=== PATIENT | female | born 1980 | race Caucasian/White ===

== ENCOUNTER → 2021-11-22 | Outpatient (CLI) | payer OTHER ==
[2021-11-25 18:08] LABS: CHLAMYDIA TRACHOMATIS, NAA Negative (Negative); HPV 16 Negative (Negative); HPV 18 Negative (Negative); HPV OTHER HR TYPES Positive (Negative)
== END | disposition home or self-care (01) ==
LOC: LAB SHORT 15:30 → LAB 15:30
PROVIDERS: Advanced Practice Midwife
DX: Z01.419 Encounter for gynecological examination (general) (routine) without abnormal findings (principal); Z11.3 Encounter for screening for infections with a predominantly sexual mode of transmission
CPT/HCPCS: 87491; 87591; 87624; 87625; G0123

== ENCOUNTER 2022-06-08 19:51 | Emergency (ER) | payer OTHER ==
[~2022-06-08] VITALS: Ht 157.5 cm; Wt 63.5 kg
[2022-06-08 20:17] VITALS: BP 204/134
[2022-06-08] MEDS ORDERED: CEPH500 PO (20:24)
== END 2022-06-08 20:34 | disposition home or self-care (01) ==
LOC: ER 19:51
DX: L03.115 Cellulitis of right lower limb (principal); G40.909 Epilepsy, unspecified, not intractable, without status epilepticus; F17.210 Nicotine dependence, cigarettes, uncomplicated
CPT/HCPCS: 99282; A9270

== ENCOUNTER 2022-06-24 18:10 | Emergency (ER) | payer OTHER ==
[~2022-06-24] VITALS: Ht 165.1 cm; Wt 72.6 kg
[~2022-06-24 18:10] MED LIST: CEPH500 PO
[2022-06-24 18:12] VITALS: BP 173/110
[2022-06-24 18:48] LABS: BASOPHILS ABSOLUTE AUTO 0.06 K/mm3 (0.00-0.23); BASOPHILS PERCENT AUTO 1 % (0-2); EOSINOPHILS ABSOLUTE AUTO 0.03 K/mm3 (0.00-0.68); EOSINOPHILS PERCENT AUTO 0 % (0-6); Hematocrit 35.4 % (33.0-51.0); Hemoglobin 10.5 g/dL (11.5-16.0); IMMATURE GRAN ABSOLUTE AUTO 0.07 K/mm3 (0.00-0.10); IMMATURE GRAN PERCENT AUTO 1 % (0-1); LYMPHOCYTES ABSOLUTE AUTO 1.08 K/mm3 (0.84-5.20); LYMPHOCYTES PERCENT AUTO 9 % (21-46); MONOCYTES ABSOLUTE AUTO 0.46 K/mm3 (0.16-1.47); MONOCYTES PERCENT AUTO 4 % (4-13); Mean Corpuscular HGB 18.8 pg (26.0-34.0); Mean Corpuscular HGB Conc 29.7 g/dL (31.5-36.5); Mean Corpuscular Volume 63 fL (80-100); Mean Platelet Volume 10.3 fL (9.1-12.4); NEUTROPHILS ABSOLUTE AUTO 10.52 K/mm3 (1.96-9.15); NEUTROPHILS PERCENT AUTO 86 % (41-73); NRBC ABSOLUTE 0.02 K/mm3 (0.00-0.02); NRBC Auto 0.2 /100 WBC (0.0-0.2); Platelet Count 299 K/mm3 (150-400); RDW Coefficient Variation 19.4 % (11.7-14.2); RDW Standard Deviation 40.4 fL (35.1-46.3); Red Blood Cell Count 5.58 M/mm3 (3.80-5.20); White Blood Cell Count 12.22 K/mm3 (4.00-11.30)
[2022-06-24 18:57] LABS: Albumin/Globulin Ratio 0.5 (0.8-1.8); Bilirubin, Total 1.3 mg/dL (0.1-1.0); Bun/Creatinine Ratio 30.1 (12.0-20.0); Globulin, Blood 5.8 g/dL (2.2-4.0); Potassium, Blood 3.4 mmol/L (3.5-5.5); Total Protein, Blood 8.8 g/dL (6.4-8.2)
== END 2022-06-24 19:20 | disposition left against medical advice (07) ==
LOC: ER 18:10
PROVIDERS: Student in an Organized Health Care Education/Training Program
DX: R79.9 Abnormal finding of blood chemistry, unspecified (principal); Z53.21 Procedure and treatment not carried out due to patient leaving prior to being seen by health care provider
CPT/HCPCS: 71046; 80053; 83880; 84484; 85025; 93005; 93010

== ENCOUNTER 2022-06-24 21:00 | Inpatient (IN) | payer OTHER ==
[~2022-06-24] VITALS: Ht 157.5 cm; Wt 58.7 kg
[2022-06-25 03:12] VITALS: BP 176/113
--- NOTE | 2022-06-25 03:26 | NUR ---
ADMIT NOTE; PT ARRIVES FROM THE ED VIA WHEEL CHAIR @0302. THE PT IS ABLE TO INDEPENDENTLY TRANSFER FROM THE WHEELCHAIR TO THE BED. THE PT IS AXO X4. THE PT DENIES ANY CHEST PAIN ON ADMIT BUT DOES REPORT SOME MILD SOB. O2 SATS ARE >95% ON RA. THE PT HAS 2+ EDEMA TO TE BLLE. THE PT IS NOW RESTING IN BED WITH THE BED IN THE LOWEST POSITION AND THE CALL LIGHT AT BEDSIDE. THE PT HAS NO FURTHER COMPLAINTS AT THIS TIME.
--- NOTE | 2022-06-25 05:22 | NUR ---
SHIFT SUMMARY; NO ACUTE CHANGES SINCE ADMIT. THE PT HAS EXPERESSED SOME DISCOMFORT IN RELATION TO HER RESTLESS LEGS. THE PTS B/P HAVE BEEN ELEVATED THIS EVENING WELL, I CALLED DR. ASH REGARDING THE PTS RESTLESS LEGS AND HER ELEVATED B/P, DR. ASH PUT IN ORDERS FOR COZAAR AND ROPINIROLE. I MEDICATED THE PT WITH THESE MEDICATIONS. THE PT DENIES ANY SOB, CHEST PAIN/PRESSURE OR N/V PRESENTLY. THE PT IS CURRENTLY LAYING IN BED RESTLESSLY WITH HER BED IN THE LOWEST POSITION AND THE CALL LIGHT AT BEDSIDE. THE PT IS AXO X4 AND INDEPENDENT IN THE ROOM. THERE IS A HAT IN THE PTS TOILET, THE PT IS STRICT I&O'S.
[2022-06-25 06:09] VITALS: BP 151/103
[2022-06-25 07:00] LABS: Albumin, Blood 2.6 g/dL (3.4-5.0); Albumin/Globulin Ratio 0.5 (0.8-1.8); Bilirubin, Total 1.1 mg/dL (0.1-1.0); Calcium, Blood 8.4 mg/dL (8.5-10.1); Creatinine, Blood 0.97 mg/dL (0.40-1.00); Globulin, Blood 5.3 g/dL (2.2-4.0); Total Protein, Blood 7.9 g/dL (6.4-8.2)
[2022-06-25 07:07] LABS: CHOL/HDL RATIO 5.8; Cholesterol 133 mg/dL (50-200); HDL Cholesterol 23 mg/dL (>39); LDL/HDL RATIO 4.2; Low Density Lipoprotein Chol 98 mg/dL (0-110); Triglycerides 62 mg/dL (30-160); Very Low Density Lipoprot Chol 12 mg/dL (6-32)
[2022-06-25 07:46] VITALS: BP 153/86
[2022-06-25 09:16] VITALS: BP 135/81
[2022-06-25 10:53] LABS: U Amphetamine Screen DETECTED; U Barbituate Screen Not Detected; U Benzodiazapine Screen Not Detected; U Buprenorphine Screen Not Detected; U Cannabinoids Screen Not Detected; U Cocaine Screen Not Detected; U Methadone Screen Not Detected; U Methamphetamine Screen DETECTED; U Opiates Screen Not Detected; U Oxycodone Screen Not Detected; U Phencyclidine Screen Not Detected; U Propoxyphene Screen Not Detected
[2022-06-25 10:59] LABS: BASOPHILS ABSOLUTE AUTO 0.04 K/mm3 (0.00-0.23); BASOPHILS PERCENT AUTO 0 % (0-2); EOSINOPHILS ABSOLUTE AUTO 0.13 K/mm3 (0.00-0.68); EOSINOPHILS PERCENT AUTO 1 % (0-6); Hematocrit 31.7 % (33.0-51.0); Hemoglobin 9.3 g/dL (11.5-16.0); IMMATURE GRAN ABSOLUTE AUTO 0.04 K/mm3 (0.00-0.10); IMMATURE GRAN PERCENT AUTO 0 % (0-1); LYMPHOCYTES ABSOLUTE AUTO 1.14 K/mm3 (0.84-5.20); LYMPHOCYTES PERCENT AUTO 12 % (21-46); MONOCYTES ABSOLUTE AUTO 0.52 K/mm3 (0.16-1.47); MONOCYTES PERCENT AUTO 6 % (4-13); Mean Corpuscular HGB 18.7 pg (26.0-34.0); Mean Corpuscular HGB Conc 29.3 g/dL (31.5-36.5); Mean Corpuscular Volume 64 fL (80-100); NEUTROPHILS ABSOLUTE AUTO 7.54 K/mm3 (1.96-9.15); NEUTROPHILS PERCENT AUTO 80 % (41-73); Platelet Count 271 K/mm3 (150-400); RDW Coefficient Variation 19.1 % (11.7-14.2); RDW Standard Deviation 41.1 fL (35.1-46.3); Red Blood Cell Count 4.97 M/mm3 (3.80-5.20); White Blood Cell Count 9.41 K/mm3 (4.00-11.30)
[2022-06-25 11:01] LABS: Mean Platelet Volume 10.1 fL (9.1-12.4)
[2022-06-25 16:55] VITALS: BP 115/76
--- NOTE | 2022-06-25 17:26 | NUR ---
PATIENT IS ALERT AND ORIENTED AND COOPERATIVE WITH CARE. ECHO WAS COMPLETED TODAY. PATIENT'S CHILDREN VISITED HER THIS AFTERNOON. PATIENT HAS LAID IN HER BED QUIETLY THROUGHOUT THIS SHIFT. SHE IS INDEPENDENT IN HER ROOM. PATIENT C/O RESTLESS LEGS AND ANXIETY, MEDICATED PER EMAR. HER BLOOD PRESSURE IS IMPROVING WITH HER LAST BP BEING 115/76. NO C/O SOB OR CP. WILL CONTINUE TO MONITOR
[2022-06-25 20:15] VITALS: BP 129/73
--- NOTE | 2022-06-25 23:20 | NUR ---
FAMILY MEMBER BROUGHT SHOWED UP IN ROOM WITH WHAT THEY SAID WAS JOSÉ MIGUEL IN THE BOX. NOTIFIED NURSE.
[2022-06-26 04:05] VITALS: BP 106/65
--- NOTE | 2022-06-26 04:39 | NUR ---
SHIFT SUMMARY; NO ACUTE CHANGES OVERNIGHT. THE PT HAS BEEN SLEEPING IN BED FOR THE MAJORITY OF THE NIGHT. THE PT'S LEGS WERE BOTHERING HER AT THE BEGINNIG OF SHIFT BUT ONCE THE PT RECIEVED HER 2100 MEDS FOR RESTLESS LEGS/NERVE PAIN THE PT HAS SINCE BEEN ABLE TO REST COMFORTABLY IN BED. THE PT IS AXO X4 AND INDEPENDENT IN THE ROOM. THE PT DENIES ANY CHEST PAIN/PRESSURE, PAIN, SOB OR N/V. CURRENTLY THE PT IS SLEEPING IN BED WITH THE BED IN THE LOWEST POSITION AND THE CALL LIGHT AT BEDSIDE.
[2022-06-26 07:22] VITALS: BP 109/69
[2022-06-26 10:03] LABS: BASOPHILS ABSOLUTE AUTO 0.03 K/mm3 (0.00-0.23); BASOPHILS PERCENT AUTO 0 % (0-2); EOSINOPHILS ABSOLUTE AUTO 0.17 K/mm3 (0.00-0.68); EOSINOPHILS PERCENT AUTO 2 % (0-6); Hematocrit 32.9 % (33.0-51.0); Hemoglobin 9.5 g/dL (11.5-16.0); IMMATURE GRAN ABSOLUTE AUTO 0.04 K/mm3 (0.00-0.10); IMMATURE GRAN PERCENT AUTO 1 % (0-1); LYMPHOCYTES PERCENT AUTO 18 % (21-46); MONOCYTES ABSOLUTE AUTO 0.53 K/mm3 (0.16-1.47); MONOCYTES PERCENT AUTO 6 % (4-13); Mean Corpuscular HGB 18.8 pg (26.0-34.0); Mean Corpuscular HGB Conc 28.9 g/dL (31.5-36.5); Mean Corpuscular Volume 65 fL (80-100); NEUTROPHILS ABSOLUTE AUTO 6.12 K/mm3 (1.96-9.15); NEUTROPHILS PERCENT AUTO 73 % (41-73); Platelet Count 282 K/mm3 (150-400); RDW Coefficient Variation 19.5 % (11.7-14.2); RDW Standard Deviation 42.9 fL (35.1-46.3); Red Blood Cell Count 5.04 M/mm3 (3.80-5.20); White Blood Cell Count 8.39 K/mm3 (4.00-11.30)
[2022-06-26 10:04] LABS: Mean Platelet Volume 10.7 fL (9.1-12.4)
[2022-06-26 10:11] LABS: Magnesium, Blood 1.9 mg/dL (1.6-2.4)
[2022-06-26 10:12] LABS: Albumin, Blood 2.4 g/dL (3.4-5.0); Albumin/Globulin Ratio 0.5 (0.8-1.8); Bilirubin, Total 0.6 mg/dL (0.1-1.0); Calcium, Blood 8.2 mg/dL (8.5-10.1); Creatinine, Blood 1.28 mg/dL (0.40-1.00); Globulin, Blood 4.5 g/dL (2.2-4.0); Phosphorus, Blood 3.2 mg/dL (2.5-4.9); Potassium, Blood 3.1 mmol/L (3.5-5.5); Total Protein, Blood 6.9 g/dL (6.4-8.2)
[2022-06-26 11:49] VITALS: BP 117/70
[2022-06-26] MEDS ORDERED: ACET325 PO (12:02)
[2022-06-26] MEDS ORDERED: CARV3.125 PO (12:03)
[2022-06-26] MEDS ORDERED: GABA300 PO (12:03)
[2022-06-26] MEDS ORDERED: ASPI81CH PO (12:03)
[2022-06-26] MEDS ORDERED: LOSA25 PO (12:03)
[2022-06-26] MEDS ORDERED: SPIR25 PO (12:04)
[2022-06-26] MEDS ORDERED: ROPI.25 PO (12:04)
[2022-06-26] MEDS ORDERED: POTA10T PO (12:04)
--- NOTE | 2022-06-26 13:36 | NUR ---
DISCHARGE PT EDUCATED ON THE IMPORTANCE OF QUITTING HER USE OF METH AND HOW HER CHF WILL CONTINUE TO GET WORSE IF SHE DOES NOT MAKE THIS CHANGE. PT VERBALIZES A WANT TO CHANGE THIS HABIT FOR HER CHILDREN. PT ALSO EDUCATED ON HER NEW MEDICATIONS AND THE IMPORTANCE OF MEDICATION COMPLIANCE WITH CHF. PT STATES SHE ALSO UNDERSTANDS THIS. [facility]FM TO CALL TO TOMORROW FOR FOLLOW UP APPOINTMENT. NO OTHER ACUTE CHANGES IN ASSESSMENT PRIOR TO DC. PT WHEELED OUT BY AIDE AND PICKED UP BY FRIEND.
== END 2022-06-26 12:59 | disposition home or self-care (01) | DRG 917 ==
LOC: ER 21:00 → MEDS 21:02 → ENPENDDIS 06-26 11:50 → MEDS 06-26 12:59
PROVIDERS: Family Medicine; Hospitalist; ADMIT Student in an Organized Health Care Education/Training Program
DX: T43.651A Poisoning by methamphetamines accidental (unintentional), initial encounter (principal); I21.A1 Myocardial infarction type 2; I50.41 Acute combined systolic (congestive) and diastolic (congestive) heart failure; E87.1 Hypo-osmolality and hyponatremia; I16.1 Hypertensive emergency; N17.9 Acute kidney failure, unspecified; I11.0 Hypertensive heart disease with heart failure; D50.9 Iron deficiency anemia, unspecified; R94.31 Abnormal electrocardiogram [ECG] [EKG]; G40.909 Epilepsy, unspecified, not intractable, without status epilepticus; F11.10 Opioid abuse, uncomplicated; E87.6 Hypokalemia; F41.9 Anxiety disorder, unspecified; G25.81 Restless legs syndrome; F15.10 Other stimulant abuse, uncomplicated; Z79.2 Long term (current) use of antibiotics; F17.210 Nicotine dependence, cigarettes, uncomplicated; X58.XXXA Exposure to other specified factors, initial encounter
CPT/HCPCS: 36415; 80053; 80061; 83036; 83735; 83880; 84100; 84443; 84484; 85025; 93005; 93010; 93306; 96372; 96374; 96376; 99284-25; A9270; G0378; J1650; J1940

== ENCOUNTER 2022-06-29 02:14 | Emergency (ER) | payer OTHER ==
[~2022-06-29 02:14] MED LIST changes: +ACET325 PO; +ASPI81CH PO; +CARV3.125 PO; +GABA300 PO; +LOSA25 PO; +POTA10T PO; +ROPI.25 PO; +SPIR25 PO
[2022-06-29 06:33] LABS: Appearance, Urine Clear (Clear); Bilirubin, Urine Neg (Neg); Blood, Urine Neg (Neg); Color, Urine Yellow (P-Yellow); Glucose Qualitative, Urine Neg (Neg); Ketones, Urine Neg (Neg); Leukocyte Esterase, Urine Neg (Neg); Nitrite, Urine Neg (Neg); Protein, Urine Neg (Neg); Source, Urine Clean Catch; Urobilinogen, Urine NORM (Normal); pH, Urine 6.5 (5.0-8.0)
[2022-06-29 07:15] LABS: BASOPHILS ABSOLUTE AUTO 0.07 K/mm3 (0.00-0.23); BASOPHILS PERCENT AUTO 1 % (0-2); EOSINOPHILS ABSOLUTE AUTO 0.16 K/mm3 (0.00-0.68); EOSINOPHILS PERCENT AUTO 1 % (0-6); Hematocrit 35.1 % (33.0-51.0); Hemoglobin 9.9 g/dL (11.5-16.0); IMMATURE GRAN ABSOLUTE AUTO 0.09 K/mm3 (0.00-0.10); IMMATURE GRAN PERCENT AUTO 1 % (0-1); LYMPHOCYTES ABSOLUTE AUTO 1.74 K/mm3 (0.84-5.20); LYMPHOCYTES PERCENT AUTO 11 % (21-46); MONOCYTES ABSOLUTE AUTO 0.97 K/mm3 (0.16-1.47); MONOCYTES PERCENT AUTO 6 % (4-13); Mean Corpuscular HGB 18.6 pg (26.0-34.0); Mean Corpuscular HGB Conc 28.2 g/dL (31.5-36.5); Mean Corpuscular Volume 66 fL (80-100); Mean Platelet Volume 10.3 fL (9.1-12.4); NEUTROPHILS ABSOLUTE AUTO 12.46 K/mm3 (1.96-9.15); NEUTROPHILS PERCENT AUTO 80 % (41-73); Platelet Count 351 K/mm3 (150-400); RDW Coefficient Variation 19.6 % (11.7-14.2); RDW Standard Deviation 44.3 fL (35.1-46.3); Red Blood Cell Count 5.31 M/mm3 (3.80-5.20); White Blood Cell Count 15.49 K/mm3 (4.00-11.30)
[2022-06-29 07:35] LABS: Albumin, Blood 2.9 g/dL (3.4-5.0); Albumin/Globulin Ratio 0.5 (0.8-1.8); Bilirubin, Total 0.6 mg/dL (0.1-1.0); Bun/Creatinine Ratio 17.6 (12.0-20.0); Calcium, Blood 8.3 mg/dL (8.5-10.1); Creatinine, Blood 0.91 mg/dL (0.40-1.00); Globulin, Blood 5.7 g/dL (2.2-4.0); Potassium, Blood 5.5 mmol/L (3.5-5.5); Total Protein, Blood 8.6 g/dL (6.4-8.2)
== END 2022-06-29 07:28 | disposition home or self-care (01) ==
LOC: ER 02:14
PROVIDERS: Student in an Organized Health Care Education/Training Program
DX: R07.9 Chest pain, unspecified (principal); M54.50 Low back pain, unspecified; F19.11 Other psychoactive substance abuse, in remission; D72.829 Elevated white blood cell count, unspecified; I11.0 Hypertensive heart disease with heart failure; I50.9 Heart failure, unspecified; F17.210 Nicotine dependence, cigarettes, uncomplicated
CPT/HCPCS: 71045; 80053; 81003; 81025; 83690; 83880; 84484; 85025; 93005; 93010

== ENCOUNTER 2022-10-06 12:46 | Inpatient (IN) | payer OTHER ==
[~2022-10-06] VITALS: Ht 162.6 cm; Wt 59.1 kg
[2022-10-06] VITALS (10 sets, daily range): BP systolic 74–179; BP diastolic 46–115
[2022-10-06 13:42] LABS: BASOPHILS ABSOLUTE AUTO 0.06 K/mm3 (0.00-0.23); BASOPHILS PERCENT AUTO 1 % (0-2); EOSINOPHILS ABSOLUTE AUTO 0.15 K/mm3 (0.00-0.68); EOSINOPHILS PERCENT AUTO 2 % (0-6); Hematocrit 33.3 % (33.0-51.0); Hemoglobin 9.4 g/dL (11.5-16.0); IMMATURE GRAN ABSOLUTE AUTO 0.04 K/mm3 (0.00-0.10); IMMATURE GRAN PERCENT AUTO 1 % (0-1); LYMPHOCYTES ABSOLUTE AUTO 2.08 K/mm3 (0.84-5.20); LYMPHOCYTES PERCENT AUTO 24 % (21-46); MONOCYTES PERCENT AUTO 5 % (4-13); Mean Corpuscular HGB 18.6 pg (26.0-34.0); Mean Corpuscular HGB Conc 28.2 g/dL (31.5-36.5); Mean Corpuscular Volume 66 fL (80-100); NEUTROPHILS ABSOLUTE AUTO 6.08 K/mm3 (1.96-9.15); NEUTROPHILS PERCENT AUTO 69 % (41-73); Platelet Count 235 K/mm3 (150-400); RDW Coefficient Variation 19.9 % (11.7-14.2); RDW Standard Deviation 44.8 fL (35.1-46.3); Red Blood Cell Count 5.05 M/mm3 (3.80-5.20); White Blood Cell Count 8.81 K/mm3 (4.00-11.30)
[2022-10-06 13:51] LABS: Base Excess Venous -5.4 mmol/L; Bicarbonate Venous 20.2 mmol/L (24.0-30.0); PCO2 Venous 39.7 mmHg (38-42); pH Blood Venous 7.32 (7.34-7.37)
[2022-10-06 14:01] LABS: Alanine Aminotransfer (ALT/SGP 18 U/L (12-78); Albumin, Blood 3.4 g/dL (3.4-5.0); Albumin/Globulin Ratio 0.7 (0.8-1.8); Alk Phos 104 U/L (50-136); Anion Gap 13 mmol/L (6-16); Aspartate Aminotrans (AST/SGOT 26 U/L (12-37); Bilirubin, Total 1.5 mg/dL (0.1-1.0); Blood Urea Nitrogen 17 mg/dL (8-24); Bun/Creatinine Ratio 15.9 (12.0-20.0); CO2, Blood 25 mmol/L (21-32); Calcium, Blood 8.9 mg/dL (8.5-10.1); Chloride, Blood 97 mmol/L (98-108); Creatinine, Blood 1.07 mg/dL (0.40-1.00); Ethanol (Alcohol), Blood, Med <3 mg/dL; Globulin, Blood 5.1 g/dL (2.2-4.0); Glomerular Filtration Rate 67 (60-); Glucose, Blood 224 mg/dL (70-99); Sodium, Blood 135 mmol/L (136-145); Total Protein, Blood 8.5 g/dL (6.4-8.2)
[2022-10-06 15:08] LABS: Source, Urine Foley catheter
[2022-10-06 15:11] LABS: Appearance, Urine Clear (Clear); Bilirubin, Urine Neg (Neg); Blood, Urine Neg (Neg); Color, Urine Yellow (P-Yellow); Glucose Qualitative, Urine Neg (Neg); Ketones, Urine Neg (Neg); Leukocyte Esterase, Urine Neg (Neg); Nitrite, Urine Neg (Neg); Protein, Urine 4+ (Neg); Urobilinogen, Urine 2+ (Normal)
[2022-10-06 15:17] LABS: Bacteria Rare /hpf; Red Blood Cells, Urine 0-2 /hpf (0-2); Squamous Epithelial Cells Rare /hpf (Few); White Blood Cells, Urine 0-2 /hpf (0-5)
[2022-10-06 15:22] LABS: U Amphetamine Screen DETECTED; U Barbituate Screen Not Detected; U Benzodiazapine Screen Not Detected; U Buprenorphine Screen DETECTED; U Cannabinoids Screen DETECTED; U Cocaine Screen Not Detected; U Methadone Screen Not Detected; U Methamphetamine Screen DETECTED; U Opiates Screen Not Detected; U Oxycodone Screen Not Detected; U Phencyclidine Screen Not Detected; U Propoxyphene Screen Not Detected
--- NOTE | 2022-10-06 15:49 | NUR ---
Pt's mom Naomi alejandrinasudeep's number [phone] Servando Deni S/O [phone] Reached pt's mother Naomi, updated her on pt's current status. She states the patient's wishes were NOT to be cremated, but that she is an organ donor. She is currently in [place], [place] with no plans to travel here to [place] at this time. Pt's s/o Servando is currently in [place]. He deferred to pt's mother for any decisions as they are not legally .
[2022-10-06] MEDS ORDERED: FUROSEMIDE20 MG PO (16:42)
--- NOTE | 2022-10-06 17:31 | NUR ---
ADMIT PT ARRIVED TO ICU 10 AT 1625. PT INTUBATED, NO SEDATION, LYING QUIETLY WITH EYES CLOSED. PUPILS FIXED AND DILATED. NO GAG WITH SUCTIONING. OG HOOKED TO LIS WITH GREEN OUTPUT. VICENTE DRAINING YELLOW URINE. DR. ALVAREZ ORDERED LEVOPHED FOR HYPOTENSION, BUT IT WAS QUICKLY TITRATED OFF PT BECAME HYPERTENSIVE WITH EVEN LOW DOSE. DR. ALVAREZ AT THE BEDSIDE ATTEMPTING ARTERIAL LINE PLACEMENT. DONOR TEAM UPDATED BY SANDRA HUGO.
--- NOTE | 2022-10-06 19:00 | NUR ---
ASSUMED CARE ASSUMED CARE OF PATIENT. REMAINS INTUBATED- AC/VC 16/400/5/60%. RR 16. NO SPONTANEOUS RESPIRATIONS OR MOVEMENT NOTED. NO RESPONSE TO NOXIOUS STIMULI. OG TO LIS WITH SMALL AMOUNT BROWN DRAINAGE. TEMP VICENTE PATENT AND DRAINING TO GRAVITY. TEMP 93.2F. RIGHT FEMORAL ARTERIAL LINE PATENT. MONITOR SHOWS SB, RATE 58. SEE ADMIT ASSESSMENT FOR FULL ASSESSMENT.
--- NOTE | 2022-10-06 19:30 | NUR ---
HYPOTHERMIA TEMP 92.9F- KESHAWN HUGGER ON AT THIS TIME.
[2022-10-06 20:26] LABS: PCO2 Arterial 26.8 mmHg (35-45); PO2 Arterial 103 mmHg (80-100); pH Blood Arterial 7.61 (7.35-7.45)
[2022-10-07 03:33] LABS: BASOPHILS ABSOLUTE AUTO 0.02 K/mm3 (0.00-0.23); BASOPHILS PERCENT AUTO 0 % (0-2); EOSINOPHILS PERCENT AUTO 1 % (0-6); Hematocrit 30.3 % (33.0-51.0); IMMATURE GRAN ABSOLUTE AUTO 0.02 K/mm3 (0.00-0.10); IMMATURE GRAN PERCENT AUTO 0 % (0-1); LYMPHOCYTES ABSOLUTE AUTO 1.18 K/mm3 (0.84-5.20); LYMPHOCYTES PERCENT AUTO 16 % (21-46); MONOCYTES ABSOLUTE AUTO 0.35 K/mm3 (0.16-1.47); MONOCYTES PERCENT AUTO 5 % (4-13); Mean Corpuscular HGB 18.8 pg (26.0-34.0); Mean Corpuscular HGB Conc 29.7 g/dL (31.5-36.5); Mean Corpuscular Volume 63 fL (80-100); NEUTROPHILS PERCENT AUTO 77 % (41-73); Platelet Count 193 K/mm3 (150-400); RDW Coefficient Variation 19.4 % (11.7-14.2); RDW Standard Deviation 42.4 fL (35.1-46.3); Red Blood Cell Count 4.79 M/mm3 (3.80-5.20); White Blood Cell Count 7.37 K/mm3 (4.00-11.30)
[2022-10-07 03:42] LABS: Mean Platelet Volume 10.2 fL (9.1-12.4)
[2022-10-07 03:50] LABS: International Normalized Ratio 1.19; Prothrombin Time Results 12.4 Sec (9.7-11.5)
[2022-10-07 03:55] LABS: Magnesium, Blood 1.8 mg/dL (1.6-2.4)
[2022-10-07 04:29] LABS: Albumin, Blood 2.1 g/dL (3.4-5.0); Bilirubin, Total 1.5 mg/dL (0.1-1.0); Bun/Creatinine Ratio 15.8 (12.0-20.0); Calcium, Blood 8.2 mg/dL (8.5-10.1); Creatinine, Blood 1.39 mg/dL (0.40-1.00); Phosphorus, Blood 4.3 mg/dL (2.5-4.9); Potassium, Blood 2.9 mmol/L (3.5-5.5)
[2022-10-07 04:30] LABS: Albumin/Globulin Ratio 0.6 (0.8-1.8); Globulin, Blood 3.3 g/dL (2.2-4.0)
[2022-10-07 04:32] LABS: PCO2 Arterial 38.3 mmHg (35-45); PO2 Arterial 66.4 mmHg (80-100); pH Blood Arterial 7.51 (7.35-7.45)
[2022-10-07 04:33] LABS: Total Protein, Blood 5.4 g/dL (6.4-8.2)
--- NOTE | 2022-10-07 06:07 | NUR ---
SHIFT SUMMARY NO ACUTE CHANGES. REMAINS INTUBATED- VENT SETTINGS AC/VC 10, TV 400, PEEP 5, FIO2 50%. NO SPONTANEOUS RESPIRATIONS THIS AM. THERE WERE A FEW EPISODES WHERE THE VENTILATOR SHOWED AN ASSISTED BREATH, RATE 11. NO COUGH/GAG/SWALLOW NOTED. PUPILS REMAIN FIXED AND DILATED, 8MM. NO CORNEAL REFLEX NOTED. NEGATIVE DOLLS EYES. NO RESPONSE IN UPPER EXTREMITIES TO DEEP NAIL BED PRESSURE. WITHDRAWS FEET SLIGHTLY TO NAIL BED PRESSURE AND NOXIOUS STIMULI. OCCASIONAL TWITCHING NOTED- NO OTHER SPONTANEOUS MOVEMENT. MONITOR SHOWED SB-SR, RATE 50s-60s T/O NOC. HR NOW MID-60s. LEVOPHED INFUSED AT 0.5-2MCG/MIN FOR SEVERAL HOURS DURING SHIFT TO MAINTAIN MAP >65. LEVOPHED IS NOW OFF. TEMP PER VICENTE CATHETER NOW 95.9F- EKSHAWN HUGGER IS IN PLACE. OG TO LIS T/O NOC WITH MINIMAL BROWN DRAINAGE. OG IS NOW CLAMPED AFTER MEDS GIVEN. VICENTE PATENT AND DRAINING TO GRAVITY- YELLOW URINE. RIGHT FEMORAL ARTERIAL LINE PATENT. SITE IS WNL AND MARIANELA IS D/I. WILL REPORT TO ONCOMING RN WHEN AVAILABLE.
--- NOTE | 2022-10-07 07:30 | NUR ---
Assumed care at 0700. Bedside report received from williams FLORES. Pt in bed, ventilated via ETT. Vent settings: AC/VC 10/400/5/50%. OG tube in place, clamped. R/groin art line in place, site WNL. Pt has R/EJ, BOOM PG and R/foot PIV in place. Mcguire catheter in place, draining to gravity. Enedelia ray on pt currently, pt temp 96.1. No acute needs ATT, will continue to monitor.
[2022-10-07 12:00] VITALS: BP 100/69
[2022-10-07 13:00] VITALS: BP 81/52
[2022-10-07 15:46] LABS: BASOPHILS ABSOLUTE AUTO 0.03 K/mm3 (0.00-0.23); BASOPHILS PERCENT AUTO 0 % (0-2); EOSINOPHILS PERCENT AUTO 1 % (0-6); Hematocrit 29.2 % (33.0-51.0); Hemoglobin 8.5 g/dL (11.5-16.0); IMMATURE GRAN ABSOLUTE AUTO 0.05 K/mm3 (0.00-0.10); IMMATURE GRAN PERCENT AUTO 0 % (0-1); LYMPHOCYTES ABSOLUTE AUTO 0.81 K/mm3 (0.84-5.20); LYMPHOCYTES PERCENT AUTO 7 % (21-46); MONOCYTES ABSOLUTE AUTO 0.43 K/mm3 (0.16-1.47); MONOCYTES PERCENT AUTO 4 % (4-13); Mean Corpuscular HGB 18.9 pg (26.0-34.0); Mean Corpuscular HGB Conc 29.1 g/dL (31.5-36.5); Mean Corpuscular Volume 65 fL (80-100); NEUTROPHILS ABSOLUTE AUTO 9.82 K/mm3 (1.96-9.15); NEUTROPHILS PERCENT AUTO 87 % (41-73); Platelet Count 153 K/mm3 (150-400); RDW Coefficient Variation 19.7 % (11.7-14.2); RDW Standard Deviation 44.8 fL (35.1-46.3); White Blood Cell Count 11.24 K/mm3 (4.00-11.30)
[2022-10-07 16:09] LABS: International Normalized Ratio 1.27; Prothrombin Time Results 13.2 Sec (9.7-11.5)
[2022-10-07 16:21] LABS: Albumin, Blood 1.8 g/dL (3.4-5.0); Albumin/Globulin Ratio 0.6 (0.8-1.8); Bilirubin, Total 1.6 mg/dL (0.1-1.0); Bun/Creatinine Ratio 15.7 (12.0-20.0); Calcium, Blood 7.9 mg/dL (8.5-10.1); Creatinine, Blood 1.4 mg/dL (0.40-1.00); Globulin, Blood 2.8 g/dL (2.2-4.0); Phosphorus, Blood 2.9 mg/dL (2.5-4.9); Potassium, Blood 3.3 mmol/L (3.5-5.5); Total Protein, Blood 4.6 g/dL (6.4-8.2)
[2022-10-07 16:23] LABS: PO2 Arterial 76.8 mmHg (80-100); pH Blood Arterial 7.48 (7.35-7.45)
[2022-10-07 17:08] LABS: Source, Urine Foley catheter
[2022-10-07 17:13] LABS: Bilirubin, Urine Neg (Neg); Blood, Urine Neg (Neg); Color, Urine Yellow (P-Yellow); Glucose Qualitative, Urine Neg (Neg); Ketones, Urine Neg (Neg); Leukocyte Esterase, Urine 1+ (Neg); Nitrite, Urine Neg (Neg); Protein, Urine Neg (Neg); Urobilinogen, Urine 2+ (Normal)
[2022-10-07 17:27] LABS: Appearance, Urine Hazy (Clear)
[2022-10-07 17:28] LABS: Bacteria Mod /hpf; Red Blood Cells, Urine 0-2 /hpf (0-2); Squamous Epithelial Cells Rare /hpf (Few); Transitional Epithelial Cells Rare /hpf (0-Rare)
[2022-10-07 17:34] LABS: SARS-Cov-2 (COVID-19) PCR, MMC NEGATIVE (NEGATIVE)
--- NOTE | 2022-10-07 19:18 | NUR ---
Shift summary. Pt remains ventiated and unresponsive. No changes to ventilator settings this shift. Levophed titrated back on at 1755 for MAP below 65, infusing at 2 mcg/min. LR infusing at 150 ml/hr. No acute events this shift. See chart for further details. Report given to nightshift RN.
[2022-10-08 03:21] LABS: PCO2 Arterial 45.5 mmHg (35-45); PO2 Arterial 93.2 mmHg (80-100); pH Blood Arterial 7.37 (7.35-7.45)
[2022-10-08 04:53] LABS: BASOPHILS ABSOLUTE AUTO 0.03 K/mm3 (0.00-0.23); BASOPHILS PERCENT AUTO 0 % (0-2); EOSINOPHILS ABSOLUTE AUTO 0.18 K/mm3 (0.00-0.68); EOSINOPHILS PERCENT AUTO 1 % (0-6); Hematocrit 30.2 % (33.0-51.0); Hemoglobin 8.5 g/dL (11.5-16.0); IMMATURE GRAN ABSOLUTE AUTO 0.12 K/mm3 (0.00-0.10); IMMATURE GRAN PERCENT AUTO 1 % (0-1); LYMPHOCYTES ABSOLUTE AUTO 0.98 K/mm3 (0.84-5.20); LYMPHOCYTES PERCENT AUTO 6 % (21-46); MONOCYTES ABSOLUTE AUTO 0.46 K/mm3 (0.16-1.47); MONOCYTES PERCENT AUTO 3 % (4-13); Mean Corpuscular HGB 18.8 pg (26.0-34.0); Mean Corpuscular HGB Conc 28.1 g/dL (31.5-36.5); Mean Corpuscular Volume 67 fL (80-100); NEUTROPHILS PERCENT AUTO 90 % (41-73); Platelet Count 154 K/mm3 (150-400); RDW Coefficient Variation 20.1 % (11.7-14.2); RDW Standard Deviation 47.1 fL (35.1-46.3); Red Blood Cell Count 4.51 M/mm3 (3.80-5.20); White Blood Cell Count 17.47 K/mm3 (4.00-11.30)
[2022-10-08 05:07] LABS: International Normalized Ratio 1.25
[2022-10-08 05:25] LABS: Magnesium, Blood 1.8 mg/dL (1.6-2.4)
[2022-10-08 05:34] LABS: Albumin, Blood 2.3 g/dL (3.4-5.0); Albumin/Globulin Ratio 0.8 (0.8-1.8); Bilirubin, Total 1.8 mg/dL (0.1-1.0); Bun/Creatinine Ratio 12.8 (12.0-20.0); Calcium, Blood 8.3 mg/dL (8.5-10.1); Creatinine, Blood 1.64 mg/dL (0.40-1.00); Globulin, Blood 2.9 g/dL (2.2-4.0); Phosphorus, Blood 2.1 mg/dL (2.5-4.9); Potassium, Blood 3.6 mmol/L (3.5-5.5); Total Protein, Blood 5.2 g/dL (6.4-8.2)
--- NOTE | 2022-10-08 06:37 | NUR ---
SHIFT SUMMARY NO NEURO CHANGES NOTED. CONTINUES TO BE UNRESPONSIVE. VENT SETTINGS NOW AC/VC 12, TV 400, PEEP 5, FIO2 50%. RR 12. SUCTIONING MODERATE AMOUNTS OF THIN WELDON SPUTUM. LUNGS ARE COARSE T/O. HR 80s-90s. LEVOPHED AT 1MCG/MIN. RIGHT FEMORAL ART LINE PATENT, LINE ZEROED, DRSG C/D/I. KESHAWN ROSADO REMAINS ON TO MAINTAIN TEMP >97.0F. D5 LR INFUSING AT 50MLS/HR AND LR INFUSING AT 100MLS/HR. OG TO LIS WITH SCANT DRAINAGE. VICENTE PATENT AND DRAINING TO GRAVITY. WILL REPORT TO ONCOMING RN WHEN AVAILABLE.
[2022-10-08 09:10] LABS: Source, Urine Foley catheter
[2022-10-08 09:12] LABS: Bilirubin, Urine Neg (Neg); Blood, Urine 1+ (Neg); Glucose Qualitative, Urine Neg (Neg); Ketones, Urine Neg (Neg); Leukocyte Esterase, Urine 3+ (Neg); Nitrite, Urine Neg (Neg); Protein, Urine Neg (Neg); Urobilinogen, Urine 2+ (Normal)
[2022-10-08 09:25] LABS: Appearance, Urine Hazy (Clear); Bacteria Not Seen /hpf; Color, Urine Yellow (P-Yellow); Red Blood Cells, Urine 0-2 /hpf (0-2); Squamous Epithelial Cells Rare /hpf (Few)
--- NOTE | 2022-10-08 11:08 | NUR ---
PT TAKEN TO [facility] AT APPROXIMATELY 0940, IV INFUSIONS PUT ON STANDBY. NO ACUTE EVENTS DURING SCAN, PT RETURNED TO ICU AT APPROXIMATELY 1030. IV INFUSIONS RESTARTED AT THAT TIME.
[2022-10-08 14:10] LABS: PCO2 Arterial 43.8 mmHg (35-45); PO2 Arterial 92.8 mmHg (80-100); pH Blood Arterial 7.38 (7.35-7.45)
[2022-10-08 14:25] LABS: BASOPHILS ABSOLUTE AUTO 0.04 K/mm3 (0.00-0.23); BASOPHILS PERCENT AUTO 0 % (0-2); EOSINOPHILS ABSOLUTE AUTO 0.16 K/mm3 (0.00-0.68); EOSINOPHILS PERCENT AUTO 1 % (0-6); Hematocrit 27.8 % (33.0-51.0); Hemoglobin 7.7 g/dL (11.5-16.0); IMMATURE GRAN ABSOLUTE AUTO 0.09 K/mm3 (0.00-0.10); IMMATURE GRAN PERCENT AUTO 1 % (0-1); LYMPHOCYTES ABSOLUTE AUTO 0.92 K/mm3 (0.84-5.20); LYMPHOCYTES PERCENT AUTO 6 % (21-46); MONOCYTES ABSOLUTE AUTO 0.61 K/mm3 (0.16-1.47); MONOCYTES PERCENT AUTO 4 % (4-13); Mean Corpuscular HGB 18.6 pg (26.0-34.0); Mean Corpuscular HGB Conc 27.7 g/dL (31.5-36.5); Mean Corpuscular Volume 67 fL (80-100); NEUTROPHILS ABSOLUTE AUTO 13.21 K/mm3 (1.96-9.15); NEUTROPHILS PERCENT AUTO 88 % (41-73); Platelet Count 129 K/mm3 (150-400); RDW Coefficient Variation 19.9 % (11.7-14.2); RDW Standard Deviation 47.5 fL (35.1-46.3); Red Blood Cell Count 4.13 M/mm3 (3.80-5.20); White Blood Cell Count 15.03 K/mm3 (4.00-11.30)
[2022-10-08 14:55] LABS: Albumin, Blood 3.1 g/dL (3.4-5.0); Albumin/Globulin Ratio 1.1 (0.8-1.8); Bilirubin, Total 1.8 mg/dL (0.1-1.0); Bun/Creatinine Ratio 11.8 (12.0-20.0); Calcium, Blood 8.6 mg/dL (8.5-10.1); Creatinine, Blood 1.7 mg/dL (0.40-1.00); Globulin, Blood 2.7 g/dL (2.2-4.0); Magnesium, Blood 2.5 mg/dL (1.6-2.4); Phosphorus, Blood 4.7 mg/dL (2.5-4.9); Potassium, Blood 3.9 mmol/L (3.5-5.5); Total Protein, Blood 5.8 g/dL (6.4-8.2)
[2022-10-08 16:43] VITALS: BP 156/78
--- NOTE | 2022-10-08 18:23 | NUR ---
Transfer. Care transferred to kisha pichardo RN at approximately 1750 for [facility]. Report given to transport team. All pt belongings sent with [facility] RN.
== END 2022-10-08 18:00 | disposition short-term general hospital (02) | DRG 64 ==
LOC: ER 12:46 → ICUE 16:34
PROVIDERS: Emergency Medicine; Internal Medicine Critical Care Medicine; Student in an Organized Health Care Education/Training Program; ADMIT Family Medicine
PROC: 0BH17EZ Insertion of Endotracheal Airway into Trachea, Via Natural or Artificial Opening (ICD-10-PCS; principal; 2022-10-06)
PROC: 5A1935Z Respiratory Ventilation, Less than 24 Consecutive Hours (ICD-10-PCS; 2022-10-06)
PROC: 4A133R1 Monitoring of Arterial Saturation, Peripheral, Percutaneous Approach (ICD-10-PCS; 2022-10-06)
DX: I62.01 Nontraumatic acute subdural hemorrhage (principal); G93.5 Compression of brain; N17.9 Acute kidney failure, unspecified; E87.3 Alkalosis; Z51.5 Encounter for palliative care; I95.9 Hypotension, unspecified; R68.0 Hypothermia, not associated with low environmental temperature; E87.6 Hypokalemia; R73.9 Hyperglycemia, unspecified; I11.0 Hypertensive heart disease with heart failure; I50.9 Heart failure, unspecified; I25.10 Atherosclerotic heart disease of native coronary artery without angina pectoris; G40.909 Epilepsy, unspecified, not intractable, without status epilepticus; F41.9 Anxiety disorder, unspecified; F17.210 Nicotine dependence, cigarettes, uncomplicated; I25.2 Old myocardial infarction; Z79.82 Long term (current) use of aspirin; Z79.899 Other long term (current) drug therapy; Z98.890 Other specified postprocedural states; Z52.89 Donor of other specified organs or tissues
CPT/HCPCS: 31500; 36415; 36556; 36569; 36600; 36620; 51702; 70450; 71045; 78606; 80053; 81001; 82150; 82330; 82803; 82947; 83036; 83615; 83690; 83735; 84100; 84132; 84484; 85025; 85610; 85730; 86850; 86900; 86901; 87040; 87070; 87077; 87185; 87205; 93005; 93010; 94002; 94003; 96374-59; 99291-25; A9270; A9521; C1751; G0480; J0330; J0690; J1644; J1720; J1953; J2704; J3475; J3480; J7040; J7042; J7050; J7060; J7120; J7121; P9047; U0002